=== PATIENT | female | born 1935 | race African-American/Black ===

== ENCOUNTER 2025-04-02 16:13 | Emergency (ER) | payer MEDICARE, MEDICAID ==
[~2025-04-02] VITALS: Ht 172.7 cm; Wt 77.1 kg
[~2025-04-02 16:13] MED LIST: ATOR20TA PO; DONE10TA11 PO; ELVI1TAB3 MT; GABA-1180 PO; HYDR12.54 MT; KEPP500 PO; LISI-186 PO; LORA1TAB PO; NAPR-1176 PO; PROC-27 MT; SULF1TAB47 MT; co
[2025-04-02 16:15] VITALS: O2SAT 97
[2025-04-02 17:47] LABS: HEMATOCRIT. 36.9 % (36.0-48.0); HEMOGLOBIN. 11.7 g/dL (12.0-16.0); MEAN PLATELET VOLUME 10.0 fl (7.4-10.4); PLATELET 144 x1000/uL (130-400); RED BLOOD CELL COUNT 4.36 mill/uL (4.2-5.4); RED CELL DISTRIBUTION WIDTH 15.5 % (11.6-14.6)
[2025-04-02 18:03] LABS: CREATININE 2.1 mg/dL (0.6-1.0)
[2025-04-02 18:04] LABS: TROPONIN I HIGH SENSITIVITY 9 ng/L (3.0-34); UREA NITROGEN BLOOD 43 mg/dL (9-23)
[2025-04-02 18:05] LABS: ASPARTATE AMINOTRANSFERASE 18 IU/L (<34)
[2025-04-02 18:06] LABS: BILIRUBIN DIRECT < 0.1 mg/dL (<=3.0); BILIRUBIN TOTAL 0.2 mg/dL (0.1-1.0); PROTEIN TOTAL 6.2 g/dL (6.0-8.3)
[2025-04-02 18:17] LABS: EOSINOPHILS % MANUAL 1.0 % (0.0-5.0); LYMPHOCYTES % MANUAL 24.0 % (20.0-60.0); MONOCYTES % MANUAL 12.0 % (2.0-8.0); NEUTROPHILS % MANUAL 63.0 % (45.0-75.0); PLATELET ESTIMATE NORMAL
[2025-04-02 20:12] LABS: TROPONIN I HIGH SENSITIVITY 13 ng/L (3.0-34)
[2025-04-02 20:49] VITALS: BP 156/80; PULSE 71; RESP 14; TEMP 36.8; O2SAT 97
== END 2025-04-02 21:10 | disposition home or self-care (01) ==
LOC: ER 16:41 → CANBEDREQ 20:48 → ER 21:10
DX: R53.1 Weakness (principal); E11.9 Type 2 diabetes mellitus without complications; F03.90 Unspecified dementia, unspecified severity, without behavioral disturbance, psychotic disturbance, mood disturbance, and anxiety; I11.0 Hypertensive heart disease with heart failure; I50.9 Heart failure, unspecified; I44.7 Left bundle-branch block, unspecified; I67.82 Cerebral ischemia; J44.9 Chronic obstructive pulmonary disease, unspecified; Z79.899 Other long term (current) drug therapy; Z86.73 Personal history of transient ischemic attack (TIA), and cerebral infarction without residual deficits; Z88.0 Allergy status to penicillin; Z20.822 Contact with and (suspected) exposure to COVID-19
CPT/HCPCS: 36415; 71045; 80048; 80076; 82550; 84484; 85025; 87426; 93005; 99285

== ENCOUNTER 2025-05-21 16:07 | Emergency (ER) | payer OTHER, MEDICAID ==
[~2025-05-21] VITALS: Ht 170.2 cm; Wt 86.0 kg
[~2025-05-21 16:07] MED LIST changes: +APIX5TAB MT; -HYDR12.54 MT; -LISI-186 PO; -NAPR-1176 PO; -PROC-27 MT; -SULF1TAB47 MT; -co
[2025-05-21 16:26] VITALS: O2SAT 98
[2025-05-21 19:48] VITALS: BP 154/91; PULSE 77; RESP 12; TEMP 36.7; O2SAT 99
[2025-05-21] MEDS ORDERED: AMLO5TAB6 MT (20:41)
== END 2025-05-21 19:53 | disposition home or self-care (01) ==
LOC: ER 16:07
DX: I10 Essential (primary) hypertension (principal); J44.9 Chronic obstructive pulmonary disease, unspecified; F03.90 Unspecified dementia, unspecified severity, without behavioral disturbance, psychotic disturbance, mood disturbance, and anxiety; E11.9 Type 2 diabetes mellitus without complications; I25.2 Old myocardial infarction; Z86.73 Personal history of transient ischemic attack (TIA), and cerebral infarction without residual deficits; Z79.899 Other long term (current) drug therapy; Z79.01 Long term (current) use of anticoagulants; Z88.0 Allergy status to penicillin
CPT/HCPCS: 99283